=== PATIENT | female | born 1990 | race Asian ===

== ENCOUNTER 2019-04-14 08:30 | Inpatient (IN) | payer MEDICAID ==
[2019-04-14] VITALS (23 sets, daily range): BP systolic 80–120; BP diastolic 38–72; PULSE 53–85; RESP 15–19; BMI 16.2
[~2019-04-14] VITALS: Ht 154.9 cm; Wt 40.2 kg
[~2019-04-14 08:30] MED LIST: CEFAZOLIN 2 GM/50 ML (PMX) 50 ML IVPB SCH; SOD CHLORIDE 0.9% 1,000 ML IV SCH
[2019-04-14] MEDS ORDERED: POLYMYXIN/BACITRACIN 1L IRRIG ONE (09:24)
[2019-04-14] MEDS ORDERED: LIDOCAINE 1%/EPI (1:100,000) (MDV) 20 ML ONE ×2 (09:24→12:34)
[2019-04-14] MEDS ORDERED: BUPIVACAINE 0.25% (MPF) 30 ML INJ ONE ×2 (09:24→12:34)
[2019-04-14] MEDS ORDERED: GENTAMICIN 80 MG INJ ONE (09:24)
[2019-04-14] MEDS ORDERED: LIDOCAINE 100 MG SYRINGE ONE (09:59)
[2019-04-14] MEDS ORDERED: MIDAZOLAM 1 MG/ML 2 ML INJ ONE (09:59)
[2019-04-14] MEDS ORDERED: PROPOFOL 20 ML ONE (09:59)
[2019-04-14] MEDS ORDERED: CEFAZOLIN 1 GM INJ ONE (10:36)
[2019-04-14] MEDS ORDERED: SUCCINYLCHOLINE CHLORIDE 100 MG/5 ML SYG IV ONE (10:36)
--- NOTE | 2019-04-14 10:40 | HPN ---
Date/Time of Note Date/Time of Note DATE: 04/14/19 TIME: 10:39 Interval H&P Admission Note Pt. seen H&P reviewed: No system changes KELLEN JENSEN MD April 14, 2019 10:40
[2019-04-14] MEDS ORDERED: ONDANSETRON 4 MG INJ ONE (10:48)
[2019-04-14] MEDS ORDERED: DEXAMETHASONE 4 MG/ML 5 ML INJ ONE (10:48)
[2019-04-14] MEDS ORDERED: GENTAMICIN 80 MG/NS (PMX) 50 ML ONE (10:55)
[2019-04-14] MEDS ORDERED: GENTAMICIN 80 MG/NS (PMX) 50 ML IVPB SCH (11:00)
--- NOTE | 2019-04-14 11:23 | PREAC ---
Date/Time of Note Date/Time of Note DATE: 04/14/19 TIME: 11:20 Anesthesia Eval and Record Evaluation Time Pre-Procedure Interview DATE: 04/14/19 TIME: 11:20 Age 28 Sex female NPO: 8 hrs Preoperative diagnosis Right Breast Cancer Planned procedure Bilateral Mastectomy with immediate 1st Stage bilateral breast reconstruction using tissue expanders Past Medical History Past Medical History: None Surgery & Anesthesia Issues No known issue Meds Anticoagulation: No Beta Chauncey within 24 hr: No Reason Beta Chauncey not given: Pt. not on B-Chauncey No Active Prescriptions or Reported Meds Current Medications Sodium Chloride 1,000 ml @ 75 mls/hr [id number] IV ; Start 04/14/19 at 06:00; Stop 04/14/19 at 19:19 Cefazolin Sodium/ Dextrose 50 ml @ 100 mls/hr PREOP IVPB ; Start 04/14/19 at 06:00; Stop 04/14/19 at 16:00 Meds reviewed: Yes Allergies Coded Allergies: No Known Allergy (Unverified , 04/14/19) Allergies Reviewed: Yes Labs/Studies Labs Reviewed: Reviewed by anesthesiologist test: Negative Pre-procedure Exam Last vitals Vital Signs Date Temp Pulse Resp B/P (MAP) Pulse Ox O2 O2 Flow FiO2 Time Delivery Rate 04/14/19 96.9 53 16 120/64 100 Room Air 09:56 (82) Airway: Adequate mouth opening Mallampati: Mallampati I Teeth: Normal Lung: Normal Heart: Normal ASA Physical Status ASA physical status: 1 Emergency: None Planned Anesthetic General/MAC: ETT Pre-operative Attestations Prior to commencing anesthesia and surgery, the patient was re-evaluated, there was verification of: *The patient's identity *The results of appropriate recent lab work and preoperative vital signs *The above evaluation not changing prior to induction *Anesthetic plan, risk benefits, alternative and complications discussed with patient/family; questions answered; patient/family understands, accepts and wishes to proceed. MEMO PARRA MD April 14, 2019 11:23
--- NOTE | 2019-04-14 11:26 | PREAC ---
Date/Time of Note Date/Time of Note DATE: 04/14/19 TIME: 11:24 Anesthesia Eval and Record Evaluation Time Pre-Procedure Interview DATE: 04/14/19 TIME: 10:15 Age 28 Sex female NPO: 8 hrs Preoperative diagnosis Right Breast Cancer Planned procedure Bilateral Mastectomy with immediate first stage breast reconstruction with ti ssue expanders Past Medical History Past Medical History: None Surgery & Anesthesia Issues No known issue Meds Anticoagulation: No Beta Chauncey within 24 hr: No Reason Beta Chauncey not given: Pt. not on B-Chauncey No Active Prescriptions or Reported Meds Current Medications Sodium Chloride 1,000 ml @ 75 mls/hr [id number] IV ; Start 04/14/19 at 06:00; Stop 04/14/19 at 19:19 Cefazolin Sodium/ Dextrose 50 ml @ 100 mls/hr PREOP IVPB ; Start 04/14/19 at 06:00; Stop 04/14/19 at 16:00 Meds reviewed: Yes Allergies Coded Allergies: No Known Allergy (Unverified , 04/14/19) Allergies Reviewed: Yes Labs/Studies Labs Reviewed: Reviewed by anesthesiologist test: Negative Pre-procedure Exam Last vitals Vital Signs Date Temp Pulse Resp B/P (MAP) Pulse Ox O2 O2 Flow FiO2 Time Delivery Rate 04/14/19 96.9 53 16 120/64 100 Room Air 09:56 (82) Airway: Adequate mouth opening Mallampati: Mallampati I Teeth: Normal Lung: Normal Heart: Normal ASA Physical Status ASA physical status: 1 Emergency: None Planned Anesthetic General/MAC: ETT Pre-operative Attestations Prior to commencing anesthesia and surgery, the patient was re-evaluated, there was verification of: *The patient's identity *The results of appropriate recent lab work and preoperative vital signs *The above evaluation not changing prior to induction *Anesthetic plan, risk benefits, alternative and complications discussed with patient/family; questions answered; patient/family understands, accepts and wishes to proceed. MEMO PARRA MD April 14, 2019 11:26
[2019-04-14] MEDS ORDERED: DIPHENHYDRAMINE 50 MG INJ IV PRN (11:30)
[2019-04-14] MEDS ORDERED: HYDROmorphONE 1 MG/5 ML IV SYRINGE IV PRN ×2 (11:30)
[2019-04-14] MEDS ORDERED: MEPERIDINE 25 MG INJ IV PRN (11:30)
[2019-04-14] MEDS ORDERED: ONDANSETRON 4 MG INJ IV PRN (11:30)
[2019-04-14] MEDS ORDERED: PHENYLephrine (100 MCG/ML) 10ML SYG ONE (11:33)
[2019-04-14] MEDS ORDERED: EPHEDrine 25 MG/5 ML SYG ONE (11:33)
[2019-04-14] MEDS ORDERED: ACETAMINOPHEN 1000MG/100ML IV 100 ML IVPB PRN (12:30)
[2019-04-14] MEDS ORDERED: KETOROLAC 30 MG INJ ONE (13:02)
--- NOTE | 2019-04-14 14:59 | OPR ---
DATE OF OPERATION: 04/14/2019 PREOPERATIVE DIAGNOSIS: Invasive cancer, right breast, and positive genetic testing for BRCA gene mu tation. POSTOPERATIVE DIAGNOSIS: Invasive cancer, right breast, and positive genetic testing for BRCA gene m utation. PROCEDURE: Right modified radical mastectomy and left mastectomy. ANESTHESIA: General. ANESTHESIOLOGIST: Dr. Pisano. SURGEON: Jason Bailon MD PLASTIC SURGEON: Bill Gudino MD ASBESTOS REMOVER: John Gudino MD INDICATIONS FOR PROCEDURE: The patient is an unfortunate 28-year-old female who presented with a mas s in her right breast. Workup including biopsy revealed approximately a 1.8 cm triple negative breas t cancer. She was treated with neoadjuvant chemotherapy and then counseled as to need for bilateral nipple-sparing mastectomy. She had a BRCA gene mutation and on the right side she would require an a xillary dissection as well. She consented and was scheduled for surgery. DESCRIPTION OF PROCEDURE: The patient was brought to the operating theater, placed under general ane sthesia. The breast and axillary regions were prepped and draped in usual sterile fashion bilaterall y. The breasts and axillary regions were prepped and draped in usual sterile fashion. Attention was first directed to the left side. A planned incision was demarcated in a periareolar fashion from th e 9 o'clock location through the 12 o'clock location to the 3 o'clock location and then was extended laterally for a distance of approximately 5 cm. The incision was then made with 15 blade scalpel. S ubcutaneous tissue was dissected with cautery. The skin edges were elevated with Allis Ghanhsyam clamps and skin flaps were created using cautery in a sequential fashion, first superiorly to the clavicle, then medially to the sternal border, inferiorly to the inframammary fold and laterally until the lati ssimus dorsi muscle was identified throughout its course. Mastectomy then took place from medial to lateral using cautery at the border of the pectoralis major muscle, the pectoralis minor muscle was i dentified. The clavipectoral fascia was incised and the axillary tail of Manoj was then resected wi th a combination of cautery and the LigaSure device. Specimen was removed, oriented and sent for pat hologic analysis. The wound was irrigated. Minimal bleeding was controlled with cautery, and the wo und was then packed with warm saline soaked lap pad. Attention was then directed to the right side. A periareolar incision was made from the 3 o'clock lo cation through the 12 o'clock location to the 9 o'clock location. It was then extended laterally for a distance of approximately 5 to 6 cm. Subcutaneous tissue was dissected with cautery. The skin ed ges were elevated with Allis Bossier clamps and skin flaps were created using cautery, first superiorly to the clavicle, then medially to the sternal border, inferiorly to the inframammary fold and latera lly until the latissimus dorsi was identified throughout its course. Mastectomy then took place from medial to lateral using cautery. At the border of the pectoralis major muscle, the pectoralis minor muscle was identified. The clavipectoral fascia was incised and then an axillary dissection then to ok place with combination of the LigaSure device and cautery, taking great care to adequately sample the axilla level 1, and some level 2 lymph nodes. Specimen was then transected, removed and sent for permanent pathologic analysis. The wound was irrigated. Minimal bleeding was controlled with caute ry. At this point, Dr. Bailon turned over control of the operation to Dr. Bill Gudino, who proceeded with bilateral reconstruction. The total blood loss for Dr. Bailon' portion of the operation was hitesh roximately 150 mL. There were no complications and the patient was in stable condition with Dr. Owusu s left the room. Dictated By: JASON NUNN/ROBINSON Conf#: [id number] DID#: [id number] CC: BHAVIK JUAREZ MD;*EndCC*
--- NOTE | 2019-04-14 15:18 | PAC ---
Date/Time of Note Date/Time of Note DATE: 04/14/19 TIME: 15:18 Post-Anesthesia Notes Post-Anesthesia Note Last documented vital signs Vital Signs Date Temp Pulse Resp B/P (MAP) Pulse Ox O2 O2 Flow FiO2 Time Delivery Rate 04/14/19 98.2 15:16 04/14/19 53 16 120/64 100 Room Air 09:56 (82) Activity: WNL Respiratory function: WNL Cardiovascular function: WNL Mental status: Baseline Pain reasonably controlled: Yes Hydration appropriate: Yes Nausea/Vomiting absent: Yes MEMO PARRA MD April 14, 2019 15:18
[2019-04-14] MEDS ORDERED: EPHEDrine 25 MG/5 ML SYG IV PRN (15:30)
--- NOTE | 2019-04-14 16:19 | OPPN ---
Date/Time of Note Date/Time of Note DATE: 04/14/19 TIME: 15:59 Operative Report Preoperative Diagnosis Right Breast Cancer with Gene Mutation Postoperative Diagnosis Same Operation/Procedure Performed 1. Bilateral Mastectomy by Dr. Jessica Bailon 2. Immediate First Stage Bilateral Breast Reconstruction Using Tissue Expanders and Acellular Matrix Surgeon Jason Bailon M.D. for Bilateral Mastectomy, and Kellen Reynoso M.D. fore Bilateral Reconstruction tax accounting assistant John Gudino M.D. Anesthesia: general (Andrew Perry M.D. ) Estimated blood loss: 0 - 10 ml's Transfusion Required none Specimen Right and Left Mastectomy specimens sent to pathology by Dr. Bailon Grafts/Implants 1. Right Breast: Bike Assembler: Van Orin, [id number], 350 cc, UHP, S.N. [id number] Acellular Matrix: Surgimend PRS, Integra Ref: [id number], 8 cm. X 16 cm.Lot#: [id number] 2. Left Breat: Bike Assembler: Van Orin, [id number], 350 cc, UHP, S.N. [phone] Acellular Matrix: Surgimend PRS, Integra Ref: [id number], 8 cm. X 16 cm.Lot#: [id number] Complications none KELLEN REYNOSO MD April 14, 2019 16:09
[2019-04-14] MEDS: D5W-0.45 NACL + KCL 20 MEQ 1,000 ML IV SCH ×2 (16:31→20:25)
--- NOTE | 2019-04-14 17:25 | OPR ---
DATE OF OPERATION: 04/14/2019 PREOPERATIVE DIAGNOSIS: Right breast cancer with gene mutation. POSTOPERATIVE DIAGNOSIS: Right breast cancer with a gene mutation. OPERATION PERFORMED: Immediate first stage bilateral breast reconstruction using tissue manager radio impl ants and implantation of acellular matrix (surgeon from Integr). SURGEON: Kellen Reynoso MD MACHINE MAINTENANCE REPAIRER: John Gudino MD ANESTHESIA: General endotracheal intubation. ANESTHESIOLOGIST: Erwin Hoyos MD LOCAL ANESTHETIC INFILTRATION: 85 mL of 0.5% lidocaine, 0.125% Marcaine and 1:200,000 epinephrine so lution. SPECIMEN: None. ESTIMATED BLOOD LOSS: Less than 10 mL. IMPLANTS USED: 1. Right breast tissue manager radio, [place] catalog #[id number], 350 mL, UHP, Serial #[id number], 200 mL normal saline added. 2. Acellular matrix for right breast: Surgimend, Integra, reference #[id number], 8 x 16 cm, lot # [id number] 3. Left breast tissue manager radio, [place] [id number], 350 mL, UHP, serial number [id number], 200 mL no rmal saline added. 4. Acellular matrix used for left breast. Surgimend PRS Integra, reference #[id number], 8 x 16 cm, lot #[id number]. COMPLICATIONS: None. DRESSING: Bactroban cream, dry sterile dressing, Tegaderm, ABD pad and mammary support. OPERATIVE PROCEDURE: Markings were made for the planned procedure with the patient in sitting positi on. The patient received intravenous antibiotic, 2 grams of Ancef and 80 mg of gentamicin by anesthe siologist. In the operating room with the patient in supine position, following adequate monitoring and induction of adequate level of general anesthesia by anesthesiologist, operation was started foll owing routine prep and drape and surgical pause by Dr. Bailon, who performed bilateral mastectomy and upon completion of mastectomy, I proceeded with bilateral first stage breast reconstruction as immedi ate reconstruction as follows: This procedure was performed for the right and left breast identically; first for the left and then f or the right breast as follows: The inferior insertion of the pectoralis major muscle was elevated. Following assurance of adequate hemostasis throughout the procedure. Adequate amount of local anesthetic solution was injected at th e base and periphery of operative area in order to provide postoperative pain control. A tissue expa nder was primed with 100 mL of normal saline solution, injectable and all the air was removed. Expan anastasiia was placed in position and the tabs were attached to the chest wall using 2-0 Monocryl sutures. At this time, the acellular matrix was placed, attached to the chest wall over the inframammary line and then to the inferior aspect of the pectoralis major muscle using interrupted and continuous stitc hes of 2-0 Monocryl. Volume of tissue manager radio on both sides was increased to 200 mL upon completion of the procedure. That allowed adequate closure of the skin using 3-0 Monocryl sutures without any tension. A 10 mm flat Isiaas-Moulton drain was placed for each breast prior to closure. All counts w ere checked and reported to be correct prior to closure. Dressing was applied as mentioned above. T he patient tolerated this procedure very well and left the operating room to the recovery room awake, stable and in comfortable, satisfactory and extubated condition. Dictated By: KELLEN CHILDRESS/ROBINSON Conf#: [id number] DID#: [id number] CC: CHRISTIANO BAILON MD;*EndCC*
[2019-04-14] MEDS: ONDANSETRON 4 MG INJ IV PRN (19:29)
[2019-04-14] MEDS: CEFAZOLIN 1 GM/50 ML (PMX) 50 ML IVPB SCH (20:32)
[2019-04-15 00:26] VITALS: BP 99/54; PULSE 75; RESP 18
[2019-04-15] MEDS: D5W-0.45 NACL + KCL 20 MEQ 1,000 ML IV SCH ×3 (00:36→20:45)
[2019-04-15] MEDS: morphine 2 MG INJ IV PRN ×3 (00:37→22:07)
[2019-04-15] MEDS: CEFAZOLIN 1 GM/50 ML (PMX) 50 ML IVPB SCH ×3 (00:37→12:34)
--- NOTE | 2019-04-15 01:02 | HP ---
DATE OF ADMISSION: 04/14/2019 CHIEF COMPLAINT AND HISTORY OF PRESENT ILLNESS: The patient is a 28-year-old female with a recent di agnosis of invasive cancer right breast, and the patient was also noted to be BRCA positive and was b rought in the hospital today for bilateral mastectomy. The patient is status post neoadjuvant chemot herapy. The patient underwent bilateral mastectomy by Dr. Chaney with immediate reconstruction by Dr. Bill Reynoso from plastic surgery standpoint. The patient has significant postoperative pain; theref ore, patient is being admitted for further evaluation and management. The patient did not have any v omiting. No reported shortness of breath. No reported abdominal pain. Headache, dizziness, syncope . Resting leg pain. No history of recent fever or chills. REVIEW OF SYSTEMS: Other than postoperative pain, rest of review of systems unremarkable. PAST MEDICAL HISTORY: As stated above. ALLERGIES: NONE. SOCIAL HISTORY: No smoking or alcohol. FAMILY HISTORY: Noncontributory. PHYSICAL EXAMINATION: GENERAL: The patient is awake, alert, fairly oriented. VITAL SIGNS: Temperature 97.5, pulse 80, respiration 18, blood pressure 108/61, O2 saturation 100% o n room air. HEENT: No eye discharge or redness. Conjunctivae are normal. Oropharynx is clear. NECK: Supple. No thyromegaly. CHEST: Fairly clear. CARDIOVASCULAR: S1, S2 normal. No murmur. ABDOMEN: Soft, nondistended, nontender. Bowel sounds present. EXTREMITIES: No edema. NEUROLOGIC: The patient is awake, alert, fairly oriented with no gross focal deficit. IMPRESSION: Invasive cancer, right breast, status post neoadjuvant chemo with positive genetic testi ng for BRCA gene mutation. Today, she underwent right modified radical mastectomy and left mastectom y. PLAN: The patient will be admitted on medical floor. The patient will be started on clear liquid di et, which will be advanced as tolerated. For pain control, the patient will be given Tylenol, [place] and IV morphine depending upon severity of the pain. We will use IV Zofran for nausea and vomiting. For DVT prophylaxis, we will use SCD. We will do CBC and basic metabolic panel in the morning. Fur ther recommendation will depend on the patient's hospital course. Dictated By: BHAVIK VENTURA/ROBINSON Conf#: [id number] DID#: [id number] CC: CHRISTIANO CHANEY MD;*[facility]*
[2019-04-15] MEDS: HYDROCODONE/APAP (5/325) TAB PO PRN (03:01)
[2019-04-15 04:00] VITALS: BP 102/57; PULSE 74; RESP 17
[2019-04-15] MEDS: ONDANSETRON 4 MG INJ IV PRN (04:33)
[2019-04-15 07:41] VITALS: BP 112/58; PULSE 72; RESP 18
--- NOTE | 2019-04-15 09:19 | PN ---
Date/Time of Note Date/Time of Note DATE: 04/15/19 TIME: 09:16 Assessment/Plan VTE Prophylaxis Risk score (from Ns)>0 risk: 5 SCD applied (from [facility] [place]): Yes SCD contraindicated: other Pharmacological prophylaxis: other Pharm contraindication: other Lines/Catheters IV Catheter Type (from Nrsg): Peripheral IV Urinary Cath still in place: No Assessment/Plan Assessment/Plan -Invasive cancer, right breast -status post neoadjuvant chemo with positive genetic testing for BRCA gene mutation. -04/14/19-right modified radical mastectomy and left mastectomy. -per surgery -advanced diet as tolerated. -For pain control, Tylenol, Creighton and IV morphine depending upon severity of the pain. - IV Zofran for nausea and vomiting. For -DVT prophylaxis, we will use SCD. Further recommendation will depend on the patient's hospital course. Result Diagram: 04/15/19 0452 04/15/19 0452 Results 24hrs Laboratory Tests Test 04/15/19 04:52 04/15/19 07:13 White Blood Count 7.8 Red Blood Count 3.78 L Hemoglobin 11.9 L Hematocrit 36.2 L Mean Corpuscular Volume 95.8 Mean Corpuscular Hemoglobin 31.5 Mean Corpuscular Hemoglobin Concent 32.9 Red Cell Distribution Width 11.3 L Platelet Count 176 Mean Platelet Volume 9.5 Immature Granulocytes % 0.300 Neutrophils % Lymphocytes % Monocytes % Eosinophils % Basophils % Nucleated Red Blood Cells % 0.0 Immature Granulocytes # 0.020 Neutrophils # Lymphocytes # Monocytes # Eosinophils # Basophils # Nucleated Red Blood Cells # Sodium Level 138 Potassium Level 4.6 Chloride Level 105 Carbon Dioxide Level 27 Anion Gap 6 Blood Urea Nitrogen 9 Creatinine 0.56 Est Glomerular Filtrat Rate mL/min > 60 Glucose Level 115 Calcium Level 8.6 Lab Scanned Report REFERENCE LAB Subjective 24 Hr Interval Summary Free Text/Dictation C/O right breast pain ; morphine for pain Constitutional: requiring IVF Exam/Review of Systems Exam Vitals Vital Signs Date Temp Pulse Resp B/P (MAP) Pulse Ox O2 O2 Flow FiO2 Time Delivery Rate 04/15/19 98.2 72 18 112/58 98 07:41 (76) 04/15/19 Room Air 04:00 04/14/19 6.0 15:15 Intake and Output 04/14/19 04/14/19 04/15/19 1515:00 23:00 07:00 IntakeIntake Total 1410 ml 1795 ml OutputOutput Total 0 ml 760 ml 525 ml BalanceBalance 0 ml 650 ml 1270 ml Constitutional: alert, well developed Psych: nl mood/affect Eyes: nl lids, nl sclera ENMT: nl external ears & nose Neck: non-tender Respiratory: clear to auscultation Cardiovascular: nl pulses, other (s1s2) Gastrointestinal: soft, non-tender Musculoskeletal: nl extremities to inspection Extremities: normal pulses Neurological: nl mental status, nl speech Skin: other (rt breast- DDI) Results Results 24hrs Laboratory Tests Test 04/15/19 04:52 04/15/19 07:13 White Blood Count 7.8 Red Blood Count 3.78 L Hemoglobin 11.9 L Hematocrit 36.2 L Mean Corpuscular Volume 95.8 Mean Corpuscular Hemoglobin 31.5 Mean Corpuscular Hemoglobin Concent 32.9 Red Cell Distribution Width 11.3 L Platelet Count 176 Mean Platelet Volume 9.5 Immature Granulocytes % 0.300 Neutrophils % Lymphocytes % Monocytes % Eosinophils % Basophils % Nucleated Red Blood Cells % 0.0 Immature Granulocytes # 0.020 Neutrophils # Lymphocytes # Monocytes # Eosinophils # Basophils # Nucleated Red Blood Cells # Sodium Level 138 Potassium Level 4.6 Chloride Level 105 Carbon Dioxide Level 27 Anion Gap 6 Blood Urea Nitrogen 9 Creatinine 0.56 Est Glomerular Filtrat Rate mL/min > 60 Glucose Level 115 Calcium Level 8.6 Lab Scanned Report REFERENCE LAB Medications Medication Current Medications Ondansetron HCl (Zofran Inj) 4 mg Q6H PRN IV NAUSEA AND/OR VOMITING Last administered on 04/15/19at 04:33; Admin Dose 4 MG; Start 04/14/19 at 12:30 Potassium Chloride/Dextrose/ Sod Cl 1,000 ml @ 125 mls/hr Q8H IV Last administered on 04/15/19at 00:36; Admin Dose 125 MLS/HR; Start 04/14/19 at 12:25 Morphine Sulfate (morphine) 2 mg Q1H PRN IV PAIN Last administered on 04/15/19at 03:33; Admin Dose 2 MG; Start 04/14/19 at 12:30 Acetaminophen 100 ml @ 400 mls/hr Q6H PRN IVPB PAIN; Start 04/14/19 at 12:30; Stop 5/17/19 at 12:29 Acetaminophen/ Hydrocodone Bitart ([place]ight[place] (5/325)) 1 tab Q4H PRN PO MODERATE PAIN LEVEL 4-6 Last administered on 04/15/19at 03:01; Admin Dose 1 TAB; Start 04/14/19 at 22:30 Cefazolin Sodium 50 ml @ 100 mls/hr Q8H IVPB Last administered on 04/15/19at 04:33; Admin Dose 100 MLS/HR; Start 04/15/19 at 05:00; Stop 04/15/19 at 14:00 DAVID GLEASON April 15, 2019 09:19
[2019-04-15] MEDS: ACETAMINOPHEN 1000MG/100ML IV 100 ML IVPB SCH ×2 (13:12→18:44)
--- NOTE | 2019-04-15 15:44 | PN ---
DATE: 04/15/2019 Postop day #1 status post right modified radical mastectomy, left mastectomy and status post bilateral immediate first stage breast reconstruction using tissue tool grinder operator surface implants and implantation of acellular matrix. SUBJECTIVE: The patient is complaining of too much pain, nausea and even vomiting. OBJECTIVE: GENERAL: Awake, alert, but sleepy due to pain medication. VITAL SIGNS: Temperature maximum 98.2, heart rate 74, respirations 18, blood pressure 102/57, saturation 97% on room air. HEAD AND NECK: Normal. CHEST: Symmetrical expansion. HEART: Regular. LUNGS: Decreased breathing sound on bilateral bases. ABDOMEN: Soft. EXTREMITIES: Moves both upper extremities. INPUT AND OUTPUT: There is 1 Isaias Moulton drain on each side. They have drained totally 165 mL from the time of operation yesterday until today 7:00 in the morning which is semi-bloody and fluid. LABORATORY DATA: WBC 7800 with 52% neutrophils and 21% bands, hemoglobin 11.9, hematocrit 36.2. Chemistry: Sodium, potassium are normal. BUN and creatinine within normal limits. ASSESSMENT AND PLAN: The patient is postop day #1 bilateral mastectomy and bilateral immediate first stage breast reconstruction with tool grinder operator surface in place. The patient has been suffering of too much pain, has been nauseous and occasionally vomiting in the morning. . We are going to place her overnight and give more pain medications. Continue to watch of her vital signs and hopefully we can discharge her tomorrow. Dictated By: HIRO HEATH MD PS/NTS Conf#: [id number] DID#: [id number] CC: BHAVIK JUAREZ MD; CHRISTIANO CHANEY MD;*EndCC* MTDD
[2019-04-15 20:00] VITALS: BP 112/57; PULSE 93; RESP 20
[2019-04-16] VITALS: BP 118/58; PULSE 91; RESP 18
[2019-04-16] MEDS: ACETAMINOPHEN 1000MG/100ML IV 100 ML IVPB SCH ×2 (01:37→06:58)
[2019-04-16 04:00] VITALS: BP 117/60; PULSE 90; RESP 17
[2019-04-16] MEDS: D5W-0.45 NACL + KCL 20 MEQ 1,000 ML IV SCH ×3 (05:51→18:17)
[2019-04-16 08:57] VITALS: BP 139/67; PULSE 76; RESP 18
[2019-04-16] MEDS: HYDROCODONE/APAP (5/325) TAB PO PRN (09:38)
--- NOTE | 2019-04-16 11:53 | PN ---
Date/Time of Note Date/Time of Note DATE: 04/16/19 TIME: 11:52 Assessment/Plan VTE Prophylaxis Risk score (from Ns)>0 risk: 4 SCD applied (from Ns): Yes Pharmacological prophylaxis: LMWH Lines/Catheters IV Catheter Type (from Nrsg): Peripheral IV Urinary Cath still in place: No Assessment/Plan Hospital Course -Invasive cancer, right breast -status post neoadjuvant chemo with positive genetic testing for BRCA gene mutation. -04/14/19-right modified radical mastectomy and left mastectomy. -per surgery -advanced diet as tolerated. -For pain control, Tylenol, [place] and IV morphine depending upon severity of the pain. - IV Zofran for nausea and vomiting. For -DVT prophylaxis, we will use SCD. Result Diagram: 04/16/1943604/16/19436 Results 24hrs Laboratory Tests Test 04/16/19 04:37 White Blood Count 6.3 Red Blood Count 3.18 L Hemoglobin 10.0 L Hematocrit 30.7 L Mean Corpuscular Volume 96.5 Mean Corpuscular Hemoglobin 31.4 Mean Corpuscular Hemoglobin Concent 32.6 Red Cell Distribution Width 11.3 L Platelet Count 147 Mean Platelet Volume 9.0 Immature Granulocytes % 0.200 Neutrophils % 69.0 Lymphocytes % 18.8 Monocytes % 11.1 H Eosinophils % 0.6 Basophils % 0.3 Nucleated Red Blood Cells % 0.0 Immature Granulocytes # 0.010 Neutrophils # 4.3 Lymphocytes # 1.2 Monocytes # 0.7 Eosinophils # 0.0 Basophils # 0.0 Nucleated Red Blood Cells # 0.0 Sodium Level 139 Potassium Level 4.2 Chloride Level 106 Carbon Dioxide Level 28 Anion Gap 5 Blood Urea Nitrogen 7 Creatinine 0.49 Est Glomerular Filtrat Rate mL/min > 60 Glucose Level 130 Calcium Level 8.6 Subjective 24 Hr Interval Summary Free Text/Dictation Patient still have considerable pain Exam/Review of Systems Exam Vitals Vital Signs Date Temp Pulse Resp B/P (MAP) Pulse Ox O2 O2 Flow FiO2 Time Delivery Rate 04/16/19 98.1 76 18 139/67 98 Room Air 08:57 (91) 04/14/19 6.0 15:15 Intake and Output 04/15/19 04/15/19 04/16/19 1515:00 23:00 07:00 IntakeIntake Total 585 ml 2000 ml 1530 ml OutputOutput Total 90 ml 950 ml 80 ml BalanceBalance 495 ml 1050 ml 1450 ml Constitutional: well developed Head: normocephalic, atraumatic Neck: supple Respiratory: diminished breath sounds Cardiovascular: regular rate and rhythm Gastrointestinal: soft, non-tender Extremities: normal pulses Results Results 24hrs Laboratory Tests Test 04/16/19 04:37 White Blood Count 6.3 Red Blood Count 3.18 L Hemoglobin 10.0 L Hematocrit 30.7 L Mean Corpuscular Volume 96.5 Mean Corpuscular Hemoglobin 31.4 Mean Corpuscular Hemoglobin Concent 32.6 Red Cell Distribution Width 11.3 L Platelet Count 147 Mean Platelet Volume 9.0 Immature Granulocytes % 0.200 Neutrophils % 69.0 Lymphocytes % 18.8 Monocytes % 11.1 H Eosinophils % 0.6 Basophils % 0.3 Nucleated Red Blood Cells % 0.0 Immature Granulocytes # 0.010 Neutrophils # 4.3 Lymphocytes # 1.2 Monocytes # 0.7 Eosinophils # 0.0 Basophils # 0.0 Nucleated Red Blood Cells # 0.0 Sodium Level 139 Potassium Level 4.2 Chloride Level 106 Carbon Dioxide Level 28 Anion Gap 5 Blood Urea Nitrogen 7 Creatinine 0.49 Est Glomerular Filtrat Rate mL/min > 60 Glucose Level 130 Calcium Level 8.6 Medications Medication Current Medications Ondansetron HCl (Zofran Inj) 4 mg Q6H PRN IV NAUSEA AND/OR VOMITING Last administered on 04/15/19 04:33; Admin Dose 4 MG; Start 04/14/19 at 12:30 Potassium Chloride/Dextrose/ Sod Cl 1,000 ml @ 125 mls/hr Q8H IV Last administered on 04/16/19at 10:16; Admin Dose 125 MLS/HR; Start 04/14/19 at 12:25 Morphine Sulfate (morphine) 2 mg Q1H PRN IV PAIN Last administered on 04/15/19 22:07; Admin Dose 2 MG; Start 04/14/19 at 12:30 Acetaminophen/ Hydrocodone Bitart ([place] (5/325)) 1 tab Q4H PRN PO MODERATE PAIN LEVEL 4-6 Last administered on 04/16/19 09:38; Admin Dose 1 TAB; Start 04/14/19 at 22:30 Acetaminophen 100 ml @ 400 mls/hr Q6H IVPB Last administered on 5/18/19at 06:58; Admin Dose 400 MLS/HR; Start 04/15/19 at 13:00; Stop 04/16/19 at 12:59 LAURA TOURE April 16, 2019 11:53
[2019-04-16 14:00] VITALS: BP 125/66; PULSE 78; RESP 18
[2019-04-16 15:12] VITALS: Ht 154.9 cm; Wt 40.2 kg
[2019-04-16] MEDS: morphine 2 MG INJ IV PRN (15:33)
[2019-04-16] MEDS: CEFADROXIL 500MG CAPSULE PO SCH (16:03)
--- NOTE | 2019-04-16 19:01 | PN ---
DATE: 04/16/2019 Postop day #2 status post right breast modified radical mastectomy and left breast simple mastectomy with immediate phase 1 postoperative reconstruction and placement of tissue metal numerical control programmer. SUBJECTIVE: Has been feeling dizziness when she started getting out of bed and walk around, so much that they had to ask the physical therapy to help her. It appears that the chest pain is to some ext ent under control today. Drainage: The patient has 2 URSULA drains and the amount of drainage in past 2 4 hours has been totally 220 mL. The draining fluid is more bloody than being serosanguineous. OBJECTIVE: PHYSICAL EXAMINATION: HEART: Regular. LUNGS: Clear. CHEST: Dressing is intact. There is surgical bra around the chest on top of the dressing. VITAL SIGNS: Temperature maximum 98.5, heart rate 91, respirations 18, blood pressure 118/58, satura tion 97% room air. ASSESSMENT AND PLAN: This is a 28-year-old female who has undergone bilateral mastectomy, right side with cancer and right modified radical mastectomy, left side prophylactic, left mastectomy, reason b eing the patient is BRCA gene positive. The patient has been having too much pain since operation an d also yesterday she was vomiting and had nausea. Today, nausea is better, but she has dizziness upo n walking. The drainage from the drains is more bloody than the serosanguineous and CBC shows that h emoglobin was 11.9 yesterday, today is 10. Therefore, considering that the patient is not stable, we are going to keep her one more day. Repeat CBC tomorrow. Hopefully, we can send her home by tomorr ow. Dictated By: HIRO HEATH MD PS/NTS Conf#: [id number] DID#: [id number] CC: CHRISTIANO CHANEY MD;*EndCC*
[2019-04-16 19:35] VITALS: BP 129/69; PULSE 101; RESP 18
[2019-04-17 00:01] VITALS: BP 120/63; PULSE 80; RESP 19
[2019-04-17] MEDS: HYDROCODONE/APAP (5/325) TAB PO PRN (00:50)
[2019-04-17] MEDS: CEFADROXIL 500MG CAPSULE PO SCH ×2 (03:06→13:35)
[2019-04-17 04:00] VITALS: BP 116/59; PULSE 79; RESP 18
[2019-04-17] MEDS: D5W-0.45 NACL + KCL 20 MEQ 1,000 ML IV SCH ×2 (04:25→12:03)
[2019-04-17 08:08] VITALS: BP 110/68; PULSE 90; RESP 18
--- NOTE | 2019-04-17 12:03 | DS ---
Date/Time of Note Date/Time of Note DATE: 04/17/19 TIME: 12:02 Discharge Summary Admission/Discharge Info Admit Date/Time April 14, 2019 at 08:30 Discharge Date/Time 04/17/19 Discharge Diagnosis -Invasive cancer, right breast -status post neoadjuvant chemo with positive genetic testing for BRCA gene mutation. -04/14/19-right modified radical mastectomy and left mastectomy. -per surgery -advanced diet as tolerated. -For pain control, Tylenol, [place] and IV morphine depending upon severity of the pain. - IV Zofran for nausea and vomiting. For -DVT prophylaxis, we will use SCD. Patient Condition: Fair Consults surgery Procedures mstectomy Hx of Present Illness Patient with invasive breast cancer comes in for mastectomy. Hospital Course Patient with invasive breast cancer comes in for mastectomy. Patient tolerated the procedure and when felt to be stable, patient was sent home. -Invasive cancer, right breast -status post neoadjuvant chemo with positive genetic testing for BRCA gene mutation. -04/14/19-right modified radical mastectomy and left mastectomy. -per surgery -advanced diet as tolerated. -For pain control, Tylenol, [place] and IV morphine depending upon severity of the pain. - IV Zofran for nausea and vomiting. For -DVT prophylaxis, we will use SCD. Home Meds No Active Prescriptions or Reported Meds Primary Care Provider Not On Staff Doctor Pending Labs Laboratory Tests Test 04/17/19 04:27 White Blood Count 6.7 10^3/ul (4.8-10.8) Red Blood Count 3.11 10^6/ul (4.20-5.40) Hemoglobin 9.8 g/dl (12.0-16.0) Hematocrit 30.0 % (37.0-47.0) Mean Corpuscular Volume 96.5 fl (82.0-101.0) Mean Corpuscular Hemoglobin 31.5 pg (29.0-33.0) Mean Corpuscular Hemoglobin Concent 32.7 g/dl (32.0-37.0) Red Cell Distribution Width 11.1 % (11.5-14.5) Platelet Count 150 10^3/UL (140-415) Mean Platelet Volume 9.2 fl (7.4-10.4) Immature Granulocytes % 0.300 % (0.001-0.429) Neutrophils % 65.2 % (39.0-77.0) Lymphocytes % 23.6 % (15.0-51.0) Monocytes % 9.9 % (0.0-11.0) Eosinophils % 0.7 % (0.0-7.0) Basophils % 0.3 % (0.0-2.0) Nucleated Red Blood Cells % 0.0 /100WBC (0.0-0.0) Immature Granulocytes # 0.020 10^3/ul (0.0-0.031) Neutrophils # 4.4 10^3/ul (1.6-7.5) Lymphocytes # 1.6 10^3/ul (0.8-2.9) Monocytes # 0.7 10^3/ul (0.3-0.9) Eosinophils # 0.1 10^3/ul (0.0-0.5) Basophils # 0.0 10^3/ul (0.0-0.1) Nucleated Red Blood Cells # 0.0 10^3/ul (0.0-0.0) LAURA TOURE April 17, 2019 12:03
== END 2019-04-17 14:14 | disposition home or self-care (01) | DRG 583 ==
LOC: REC 08:30 → MS1 16:20
PROVIDERS: ADMIT Surgery Surgical Oncology; ATTEND Surgery Surgical Oncology
PROC: 0HTV0ZZ Resection of Bilateral Breast, Open Approach (ICD-10-PCS; principal; 2019-04-14 10:00)
PROC: 0HHV0NZ Insertion of Tissue Expander into Bilateral Breast, Open Approach (ICD-10-PCS; 2019-04-14 10:00)
DX: C50.911 Malignant neoplasm of unspecified site of right female breast (principal)
CPT/HCPCS: 80048; 84703; 85025; 88307; 97161; J0131; J0690; J1100; J1170; J1580; J1885; J2001; J2250; J2270; J2370; J2405; J3010; J3480; J7030